=== PATIENT | male | born 1995 | race African-American/Black ===

== ENCOUNTER 2022-06-29 17:32 | Emergency (ER) | payer OTHER ==
[~2022-06-29] VITALS: Ht 170.2 cm; Wt 88.0 kg
[2022-06-29] MEDS ORDERED: KETOROLAC 60MG 2ML VIAL IM ONE (20:50)
[2022-06-29] MEDS ORDERED: CYCLOBENZAPRINE 10MG TABLET PO ONE (20:50)
[2022-06-29] MEDS ORDERED: KETO10TAB PO (21:56)
[2022-06-29] MEDS ORDERED: CYCL-707 PO (21:56)
[2022-06-29 22:15] VITALS: BP 141/78
== END 2022-06-29 22:16 | disposition home or self-care (01) ==
LOC: M ED 17:32
DX: Z04.1 Encounter for examination and observation following transport accident (principal); S39.012A Strain of muscle, fascia and tendon of lower back, initial encounter; V48.5XXA Car driver injured in noncollision transport accident in traffic accident, initial encounter; Y92.89 Other specified places as the place of occurrence of the external cause; Y93.89 Activity, other specified; Y99.8 Other external cause status; Z87.39 Personal history of other diseases of the musculoskeletal system and connective tissue
CPT/HCPCS: 72128; 72131; 96372; 99283; J1885